=== PATIENT | female | born 1990 | race Hispanic/Latino ===

== ENCOUNTER 2018-04-07 03:20 | Inpatient (IN) | payer SELFPAY ==
[2018-04-07] MEDS ORDERED: Ondansetron PF 4 MG/2 ML Vial IVP PRN ×3 (04:07→14:52)
[2018-04-07] MEDS ORDERED: Butorphanol Tartrate 1 MG/ML VIAL SLOW IVP PRN (04:07)
[2018-04-07] MEDS ORDERED: Misoprostol 200 MCG TAB PR PRN (04:07)
[2018-04-07] MEDS ORDERED: Lidocaine 1% (PF) 30 ML VIAL SC PRN (04:07)
[2018-04-07] MEDS ORDERED: Promethazine HCl 25 MG/ML VIAL IM PRN ×2 (04:07→05:04)
[2018-04-07] MEDS ORDERED: Carboprost 250 MCG/ML AMP IM PRN (04:07)
[2018-04-07] MEDS ORDERED: NS / Oxytocin 40 units/1000ml 1,000 ML IV PRN (04:07)
[2018-04-07] MEDS ORDERED: Methylergonovine 0.2 MG/ML VIAL IM PRN (04:07)
[2018-04-07] MEDS ORDERED: Penicillin G Potassium 5 MILL.UNITS VIAL ONE (04:14)
[2018-04-07] MEDS ORDERED: Penicillin G Potassium 5 MILL.UNITS in Sodium Chloride 0.9% 100 ML IVPB SCH (04:15)
--- NOTE | 2018-04-07 04:18 | PDOC.FPROB ---
FMR OB H&P: HPI - History of Present Illness Chief Complaint: contractions History of Present Illness: 27 yo @ 38.2 by LMP/19.6 wk US presents with painful contractions that began at 2300 on 04/06/18. No LOF. Reports some vaginal discharge/blood when contractions began. No headache, edema. Feels movement. Patient with limited care, no PNC records available. 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 - Surgical History Sx History: None - Social History Social History: No tobacco, alcohol, drug use - Family History Family History: None FMR OB H&P: Medications - Current Home Medications: Medication Instructions Recorded Confirmed Type Vit,Calc76/Iron/Folic 1 tablet PO DAILY-AC 04/07/18 04/07/18 History [Pnv 29-1 Tablet] Allergies/Adverse Reactions: Allergies Allergy/AdvReac Type Severity Reaction Status Date / Time No Known Allergies Allergy Verified 04/07/18 03:56 FMR OB H&P: ROS - Review of Systems Cardiovascular: denies: chest pain, edema Respiratory: denies: shortness of breath Gastrointestinal: denies: nausea, vomiting Genitourinary (Female): reports: vaginal discharge, vaginal bleeding, contractions Musculoskeletal: denies: pain FMR OB H&P: Vital Signs - Maternal Vital signs: 126/79, 69 - Heart Tones Baseline: 125 Variability: moderate Acceleration: absent Deceleration: absent Category: category 1 [place] contractions every: 2-5 FMR OB H&P: Physical Exam - Physical Exam HEENT: normocephalic and atraumatic Heart: no edema General: no respiratory distress Abdomen: gravid, non-tender Skin: good tugor - Pelvic Exam SVE: 6/100/-1 bulging bag FMR OB H&P: A/P - Problem List (1) Current Visit: Yes Status: Acute (2) Late care Current Visit: Yes Status: Acute Code(s): O09.30 - SUPRVSN OF PREG W INSUFFICIENT ANTENAT CARE, UNSP TRIMESTER (3) Anemia Current Visit: Yes Status: Acute Code(s): D64.9 - ANEMIA, UNSPECIFIED (4) GBS (group B Streptococcus carrier), +RV culture, currently Current Visit: Yes Status: Acute Code(s): O99.820 - STREPTOCOCCUS B CARRIER STATE COMPLICATING Discussion: Date/Time: 04/07/18 0416 sIUP in active labor - FHT 125/mod/no accel/no decel - 6/100/-1 with bulging bag @ 0345 - Ctx q2-4 min - desires epidural - LR @ 125, NPO GBS+ - will start antibiotics Incomplete care - no PNC records on file Anemia - on PNC card, unknown Hgb Elevated 1hr GTT of 156, 3 hr GTT negative PCP: Naga John This H&P was discussed with Dr. Hutchinson and Dr. Mccall who agree with the above documentation and plan. Addendum - Attending - Attending Attestation Date/Time: 04/07/18 0933 I personally evaluated the patient and discussed the management with Dr. Brown I agree with the History, Examination, Assessment and Plan documented above with any addition or exceptions noted below. 27 yo @ 38.2 by LMP/19.6 wk US in active labor at term. No records available at this time but uncomplicated per patient report. GBS positive. Start prophylaxis now. Defer further cervical checks or AROM until 4hrs after first dose of pcn. Cat I FHT Anticipate
[2018-04-07] MEDS ORDERED: Fentanyl 4 mcg/Bup 0.1% Cadd 100 ML ONE (04:25)
[2018-04-07 04:31] VITALS: BMI 34.9
[2018-04-07 04:33] LABS: Hemoglobin 11.3 g/dL (12.0-16.0); Mean Corpuscular HGB CONC 32.2 g/dL (32.0-36.0); Mean Corpuscular Hemoglobin 27.4 pg (27.0-31.0); Mean Corpuscular Volume 84.9 fL (78.0-98.0); Mean Platelet Volume 10.2 fL (7.4-10.4); Platelet Count 179 thou/uL (130-400); RBC Distribution Width 18.1 % (11.5-14.5); Red Blood Cell (RBC) Count 4.15 mill/uL (4.20-5.40); White Blood Cell (WBC) Count 8.5 thou/uL (4.8-10.8)
[2018-04-07] MEDS: Lactated Ringer's 1,000 ML IV SCH ×2 (05:02→06:35)
[2018-04-07] MEDS ORDERED: diphenhydrAMINE 50 MG/ML VIAL IVP PRN (05:04)
[2018-04-07] MEDS ORDERED: Lactated Ringer's 500 ML IV PRN (05:04)
[2018-04-07] MEDS ORDERED: Eucerin (Mineral Oil/Petrolatum,White) 30 gm Jar TOP PRN (05:04)
[2018-04-07] MEDS ORDERED: ePHEDrine/0.9% NaCl/PF SYRINGE 50 mg/10 ml SLOW IVP PRN (05:04)
[2018-04-07] MEDS ORDERED: Acetaminophen 325 MG TAB PO PRN (05:04)
[2018-04-07] MEDS ORDERED: Naloxone HCl 0.4 mg/ml Vial IVP PRN ×2 (05:04)
[2018-04-07 05:09] LABS: HBSAg Index 0.28 S/CO (0-0.99); Hep B Surf Ag Non-Reactive S/CO (NonReactive); Syphilis Antibody Nonreactive (Nonreactive); Syphilis Antibody Index 0.03 S/CO (<1.00 Non-Reactive)
[2018-04-07] MEDS ORDERED: Fentanyl 4 mcg/Bupivacaine 0.1% Cassette 100 ML EPIDURAL SCH (05:15)
[2018-04-07] MEDS ORDERED: Communication Order-Pharmacy FS SCH (05:15)
--- NOTE | 2018-04-07 06:37 | PDOC.LDPN ---
Labor & Delivery Progress Note - Subjective Subjective: comfortable - Objective Vital signs reviewed and normal: yes General: NAD, resting Uterine fundus: non tender FHT: category 1, variability present [place] contractions every: 2-4 minutes - Assessment (1) Anemia Code(s): D64.9 - ANEMIA, UNSPECIFIED Current Visit: Yes Status: Acute (2) GBS (group B Streptococcus carrier), +RV culture, currently Code(s): O99.820 - STREPTOCOCCUS B CARRIER STATE COMPLICATING Current Visit: Yes Status: Acute (3) Late care Code(s): O09.30 - SUPRVSN OF PREG W INSUFFICIENT ANTENAT CARE, UNSP TRIMESTER Current Visit: Yes Status: Acute (4) Current Visit: Yes Status: Acute -: # sIUP in active labor - FHT 13-, minimal variablity at the moment, many periods with good variability , turned mother, no decels, multiple accels - cat 1 strip - 6/100/-1 with bulging bag @ 0345, will check again at 0800, 4 hrs after abx - Ctx q2-4 min - epidural in place # GBS+ - Penicillin started at 0400 # Late to care # Anemia of
--- NOTE | 2018-04-07 08:05 | PDOC.LDPN ---
Labor & Delivery Progress Note - Subjective Subjective: comfortable - Objective Vital signs reviewed and normal: yes General: NAD, resting Uterine fundus: non tender Dilation: 8 Effacement: 100% Station: -1 FHT: category 1 [place] contractions every: 2-4 AROM: meconium stained fluid - Assessment (1) Anemia Code(s): D64.9 - ANEMIA, UNSPECIFIED Current Visit: Yes Status: Acute (2) GBS (group B Streptococcus carrier), +RV culture, currently Code(s): O99.820 - STREPTOCOCCUS B CARRIER STATE COMPLICATING Current Visit: Yes Status: Acute (3) Late care Code(s): O09.30 - SUPRVSN OF PREG W INSUFFICIENT ANTENAT CARE, UNSP TRIMESTER Current Visit: Yes Status: Acute (4) Current Visit: Yes Status: Acute -: 27 yo @ 38.2 by LMP/19.6 wk US # sIUP in active labor - FHT 130, moderate variability, accels present, no decels - cat 1 strip - 8/100/-1 - Ctx q2-4 min - epidural in place - AROM at 0800, light mec # GBS+ - Penicillin started at 0400 # Late to care # Anemia of
[2018-04-07] MEDS: Penicillin G 2.5 MILL.units 2.5 MILL.UNITS in Premix Bag 1 BAG IVPB SCH ×2 (08:06→18:50)
[2018-04-07] MEDS ORDERED: NS / Oxytocin 40 units/1000ml 1,000 ML ONE (09:19)
[2018-04-07] MEDS ORDERED: Lidocaine 1% (PF) 30 ML VIAL ONE (09:19)
--- NOTE | 2018-04-07 09:39 | PDOC.LDPN ---
Labor & Delivery Progress Note - Subjective Subjective: comfortable - Objective General: NAD, resting, breathing through contractions Dilation: 9 Effacement: 100% Station: 0 FHT: category 1, variability present [place] contractions every: 2-4 AROM: meconium stained fluid - Assessment (1) Anemia Code(s): D64.9 - ANEMIA, UNSPECIFIED Current Visit: Yes Status: Acute (2) GBS (group B Streptococcus carrier), +RV culture, currently Code(s): O99.820 - STREPTOCOCCUS B CARRIER STATE COMPLICATING Current Visit: Yes Status: Acute (3) Late care Code(s): O09.30 - SUPRVSN OF PREG W INSUFFICIENT ANTENAT CARE, UNSP TRIMESTER Current Visit: Yes Status: Acute (4) Current Visit: Yes Status: Acute -: 27 yo @ 38.2 by LMP/19.6 wk US # sIUP in active labor - FHT 130, moderate variability, accels present, no decels - cat 1 strip - 9/100/-1 - Ctx q2-4 min - epidural in place - AROM at 0800, light mec # GBS+ - Penicillin started at 0400 # Late to care # Anemia of
[2018-04-07] MEDS ORDERED: NS w/ Oxytocin 10 units 500 ML ONE (10:05)
[2018-04-07] MEDS ORDERED: Bupivacaine HCl 0.5%/Epinephrine 1:200,000/PF 30 ml Vial ONE (11:11)
[2018-04-07] MEDS ORDERED: Bisacodyl 10 MG SUPP PR PRN (14:52)
[2018-04-07] MEDS ORDERED: NS / Oxytocin 40 units/1000ml 1,000 ML IV SCH (14:52)
[2018-04-07] MEDS ORDERED: Milk Of Magnesia 30 ML UDCUP PO PRN (14:52)
[2018-04-07] MEDS ORDERED: Lanolin Ointment 7 GM TUBE TOP PRN (14:52)
[2018-04-07] MEDS ORDERED: Benzocaine/Menthol 20-0.5% 60 ML CAN TOP PRN (14:52)
[2018-04-07] MEDS ORDERED: Zolpidem Tartrate 5 MG TAB PO PRN (14:52)
[2018-04-07] MEDS: Ibuprofen 800 MG TAB PO SCH ×2 (16:42→23:29)
[2018-04-07] MEDS: Ferrous Sulfate 325 MG TAB PO SCH (17:05)
[2018-04-07] MEDS: Docusate Calcium (SURFAK) 240 MG CAP PO SCH (21:43)
[2018-04-08] MEDS: Ibuprofen 800 MG TAB PO SCH ×3 (05:51→21:22)
[2018-04-08] MEDS ORDERED: Sodium Chloride 0.9% 10 ML ONE (05:54)
[2018-04-08 07:05] LABS: Hemoglobin 10.1 g/dL (12.0-16.0); Mean Corpuscular Hemoglobin 27.7 pg (27.0-31.0); Mean Corpuscular Volume 86.5 fL (78.0-98.0); Mean Platelet Volume 9.6 fL (7.4-10.4); Platelet Count 161 thou/uL (130-400); RBC Distribution Width 18.6 % (11.5-14.5); Red Blood Cell (RBC) Count 3.64 mill/uL (4.20-5.40); White Blood Cell (WBC) Count 11.5 thou/uL (4.8-10.8)
--- NOTE | 2018-04-08 08:35 | PDOC.PP ---
Post Progress Note Post Day #: 1 Subjective: This morning mother states she is feeling well overall. Minimal bleeding overnight. Had good PO intake. Ambulating. No BM as of yet. PO intake tolerated: yes Flatus: no Ambulation: yes Vital Signs (12 hours) Temp Pulse Resp BP 04/08/18 05:45 97.5 F L 68 20 102/60 04/08/18 00:00 98.2 F 74 18 113/64 Weight Weight 81.193 kg - Physical Examination General: NAD Cardiovascular: no m/r/g, RRR Respiratory: clear to auscultation bilaterally, non-labored breathing Abdominal: + bowel sounds, lochia, no distention, appropriately TTP Fundus firm & at: umbilicus Extremities: negative homans (B) Neurological: no gross focal deficits Psychiatric: A&Ox3, normal affect Result Diagrams: 04/08/18 06:28 Additional Labs: Post Labs Blood Type O POSITIVE 04/07/18 04:22 Hep Bs Antigen Non-Reactive S/CO (NonReactive) 04/07/18 04:22 (1) Anemia Code(s): D64.9 - ANEMIA, UNSPECIFIED Status: Acute (2) GBS (group B Streptococcus carrier), +RV culture, currently Code(s): O99.820 - STREPTOCOCCUS B CARRIER STATE COMPLICATING Status : Acute (3) Late care Code(s): O09.30 - SUPRVSN OF PREG W INSUFFICIENT ANTENAT CARE, UNSP TRIMESTER Status: Acute (4) Status: Acute - Assessment/Plan 27 yo @ 38.2 by LMP/19.6 wk US # PPD 1 - hgb 11.3-> 10.2 - ambulating - working on - pain well controlled # GBS+ - adequate ppx # Late to care Dispo: anticipate d/c tomorrow AM Addendum - Attending - Attending Attestation Date/Time: 04/08/18 1025 I personally evaluated the patient and discussed the management with Dr. John I agree with the History, Examination, Assessment and Plan documented above with any addition or exceptions noted below. day #1 s/p uncomplicated Meeting milestones Appropriate drop in H+H Continue routine PP care. Anticipate d/c to home on PPD # 2.
[2018-04-08] MEDS: Docusate Calcium (SURFAK) 240 MG CAP PO SCH ×2 (08:46→21:22)
[2018-04-08] MEDS ORDERED: Adacel (T-DAP) 0.5 ML SYRINGE IM ONE (09:00)
[2018-04-08] MEDS: Ferrous Sulfate 325 MG TAB PO SCH ×2 (13:51→18:28)
[2018-04-09] MEDS: Ibuprofen 800 MG TAB PO SCH (06:08)
--- NOTE | 2018-04-09 06:11 | PDOC.PP ---
Post Progress Note Post Day #: 2 Subjective: Feeling well. Walking, eating, voiding, stooling w/o difficulty. is improved but did supplement w/ some formula last night. Will see today. PO intake tolerated: yes Flatus: yes Ambulation: yes Vital Signs (12 hours) Temp Pulse Resp BP Pulse Ox 04/08/18 20:00 97.5 F L 70 18 118/68 98 Weight Weight 81.193 kg - Physical Examination General: NAD Cardiovascular: no m/r/g, RRR Respiratory: clear to auscultation bilaterally, non-labored breathing Abdominal: + bowel sounds, lochia, no distention, appropriately TTP Extremities: negative homans (B) Neurological: no gross focal deficits Psychiatric: A&Ox3, normal affect Result Diagrams: 04/08/18 06:28 Additional Labs: Post Labs Blood Type O POSITIVE 04/07/18 04:22 Hep Bs Antigen Non-Reactive S/CO (NonReactive) 04/07/18 04:22 (1) Anemia Code(s): D64.9 - ANEMIA, UNSPECIFIED Status: Acute (2) GBS (group B Streptococcus carrier), +RV culture, currently Code(s): O99.820 - STREPTOCOCCUS B CARRIER STATE COMPLICATING Status : Acute (3) Late care Code(s): O09.30 - SUPRVSN OF PREG W INSUFFICIENT ANTENAT CARE, UNSP TRIMESTER Status: Acute (4) Status: Acute - Assessment/Plan 27 yo @ 38.2 by LMP/19.6 wk US # PPD 2 - hgb 11.3-> 10.2 - ambulating - working on , to see before d/c - pain well controlled # GBS+ - adequate ppx # Late to care Dispo: d/c today, f/u at [facility] in 2 weeks Addendum - Attending - Attending Attestation Date/Time: 04/09/18 6406 I personally evaluated the patient and discussed the management with Dr John I agree with the History, Examination, Assessment and Plan documented above with any addition or exceptions noted below. Stable PPD #2. Meeting milestones. D/c to home today
[2018-04-09] MEDS: Ferrous Sulfate 325 MG TAB PO SCH (08:41)
[2018-04-09] MEDS: Docusate Calcium (SURFAK) 240 MG CAP PO SCH (09:16)
--- NOTE | 2018-04-09 09:40 | DN ---
DATE OF PROCEDURE: 04/07/2018 DELIVERING PHYSICIAN: Dr. Colin John. ATTENDING PHYSICIAN: Dr. Leena Mccall. PROCEDURE PERFORMED: Spontaneous vaginal delivery. ANESTHESIA: Epidural. QBL: 288. PREOPERATIVE DIAGNOSES: 1. Term intrauterine in labor. 2. Anemia of . 3. Late care. POSTOPERATIVE DIAGNOSES: 1. Intrauterine , delivered. 2. Anemia of . INDICATIONS: A 27-year-old, G2, P2 female presented in active labor. DELIVERY NOTE: This is a 27-year-old, G2, P2-0-0-2 female at 38 and 2 weeks, who delivered a viable male at 1203 hours on 04/07/2018. Following an uneventful antepartum course, a vigorous male infant was delivered over an intact peritoneum in the left occiput anterior position. Mother delivered in ROP for the majority of her time in second stage, but baby flipped near the end. Anterior shoulder and then the remainder of the body were delivered. No nuchal cord. Head was held down, and nares were bulb suctioned. Cord clamped and cut and cord blood collected. Placenta delivered intact with a 3-vessel cord noted. Fundal massage was performed, and the fundus was firm. The cervix and vagina were inspected and found to have a first-degree perineal laceration as well as bilateral superficial periurethral lacerations. The first-degree laceration was repaired with 3 [id number] knots of 3-0 Vicryl. The 2 periurethral lacerations were repaired with a figure-of- eight knot on each side with 3-0 Vicryl. Upon finishing, the lacerations were found to be hemostatic. The went to the nursery in good condition for routine care. Apgars were 8 and 9 at one and five minutes respectively. The patient tolerated delivery well, went to after routine recovery care. I was present for and assisted in the entire uncomplicated vaginal delivery performed by Dr John. I agree with the above documentation. Noemi JUNIOR Job ID: [id number] MTDD
[2018-04-09 13:32] VITALS: BP 119/68; TEMP 98.2
== END 2018-04-09 14:50 | disposition home or self-care (01) | DRG 807 ==
LOC: L&D/OP 03:20 → L&D 05:24 → 3SW 15:00
PROVIDERS: ADMIT Family Medicine; ATTEND Family Medicine
PROC: 10E0XZZ Delivery of Products of Conception, External Approach (ICD-10-PCS; principal; 2018-04-07)
PROC: 0HQ9XZZ Repair Perineum Skin, External Approach (ICD-10-PCS; 2018-04-07)
PROC: 0UQMXZZ Repair Vulva, External Approach (ICD-10-PCS; 2018-04-07)
PROC: 10907ZC Drainage of Amniotic Fluid, Therapeutic from Products of Conception, Via Natural or Artificial Opening (ICD-10-PCS; 2018-04-07)
PROC: 4A0HXCZ Measurement of Products of Conception, Cardiac Rate, External Approach (ICD-10-PCS; 2018-04-07)
DX: O99.824 Streptococcus B carrier state complicating childbirth (principal); Z37.0 Single live birth; O99.02 Anemia complicating childbirth; O70.0 First degree perineal laceration during delivery; O71.82 Other specified trauma to perineum and vulva; O77.0 Labor and delivery complicated by meconium in amniotic fluid; Z3A.38 38 weeks gestation of pregnancy; D64.9 Anemia, unspecified
CPT/HCPCS: 36415; 51702; 85027; 86780; 86850; 86900; 86901; 87340; 99285; J0670; J2001; J2540

== ENCOUNTER 2020-03-25 21:05 | Inpatient (IN) | payer MEDICAID, OTHER, SELFPAY ==
[~2020-03-25 21:05] MED LIST: Bupivacaine HCl 0.25%/Epi 0.0005/PF 10 ML VIAL FS ONE; Lidocaine 2% PF 5 ML VIAL ONE
[2020-03-25 21:48] VITALS: BMI 28.3
--- NOTE | 2020-03-25 22:09 | PDOC.FPROB ---
FMR OB H&P: HPI - History of Present Illness Indentification: 29 y/o @ 39.6 wga based on 19.1 wk sono Primary Care Physician: ASHLEY Morrow FMR OB H&P: Current - Care : 3 Para: 2 Gestational age: 39.6 Due date: 03/26/20 Dating Criteria: 19.1 wk sono FMR OB H&P: Medications - Current Home Medications: Medication Instructions Recorded Confirmed Type Vit,Calc76/Iron/Folic 1 tablet PO DAILY-AC 04/07/18 03/25/20 History [Pnv 29-1 Tablet] Allergies/Adverse Reactions: Allergies Allergy/AdvReac Type Severity Reaction Status Date / Time No Known Allergies Allergy Verified 04/07/18 03:56 FMR OB H&P: A/P Discussion: Date/Time: 03/25/202206 This H&P was discussed with [] and [] who agree with the above documentation and plan.
[2020-03-26] MEDS ORDERED: Ondansetron PF 4 MG/2 ML Vial IVP PRN ×2 (00:24→06:35)
[2020-03-26] MEDS ORDERED: hydrALAZINE 20 MG/ML VIAL SLOW IVP PRN ×2 (00:24→17:32)
[2020-03-26] MEDS ORDERED: Promethazine HCl 25 MG/ML VIAL IM PRN ×2 (00:24→06:35)
[2020-03-26] MEDS ORDERED: NS / Oxytocin 40 units/1000ml 1,000 ML IV PRN ×2 (00:24→01:05)
[2020-03-26] MEDS ORDERED: Lidocaine 1% (PF) 30 ML VIAL SC PRN ×2 (00:24→01:05)
--- NOTE | 2020-03-26 00:24 | PDOC.FPROB ---
FMR OB H&P: HPI - History of Present Illness Chief Complaint: eIOL Indentification: 29 y/o @ 39 wga based on LMP c/w 18.1 wk sono History of Present Illness: Pt presents today for eIOL. Today based on LMP of 06/27/2019 pt is 39.0 wga, which is consistent with u/s obtained in [place] (photos/documentation in chart) at 18.1 wga. Has been keeping with PNC visits. Pt endorses FM, no LOF, VB, VD, or contractions at this time. No complaints at this time. ROS negative. 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 History: -none - Surgical History Sx History: -none - Social History Social History: -no TAD -FOB involved - Family History Family History: -mother: DM FMR OB H&P: Medications - Current Home Medications: Medication Instructions Recorded Confirmed Type Vit,Calc76/Iron/Folic 1 tablet PO DAILY-AC 04/07/18 03/25/20 History [Pnv 29-1 Tablet] Allergies/Adverse Reactions: Allergies Allergy/AdvReac Type Severity Reaction Status Date / Time No Known Allergies Allergy Verified 04/07/18 03:56 FMR OB H&P: ROS - Review of Systems General: denies: fever/chills Eyes: denies: vision changes, double vision, scotomas ENT: denies: nasal congestion, rhinorrhea Cardiovascular: denies: chest pain, palpitation Respiratory: denies: cough, congestion, shortness of breath Gastrointestinal: denies: abdominal pain Genitourinary (Female): denies: incontinence, dysuria, polyuria, vaginal discharge, vaginal bleeding, vaginal pressure Musculoskeletal: denies: pain, stiffness, tenderness, swelling Neurologic: denies: numbness, weakness, headache Integumentary: denies: rash FMR OB H&P: Vital Signs - Maternal Vital signs: BP 123/66, HR 88 - Heart Tones Baseline: 140 Variability: moderate Acceleration: absent Deceleration: absent Category: category 1 [place] contractions every: 1 contraction seen in 20 min strip FMR OB H&P: Physical Exam - Physical Exam General: NAD, awake, alert and oriented HEENT: normocephalic and atraumatic, PERRLA, grossly normal vision, grossly normal hearing Neck: supple Heart: RRR, normal S1/S2, no murmurs/rubs/gallops General: CTAB, no respiratory distress, good air movement, no rales/rhonchi, no wheezing, no retractions Abdomen: soft, gravid Musculoskeletal: normal gait and station, pulses present, FROM in all four extremities Skin: no rash, good tugor, capillary refill <2 seconds Lymphatic: no unusual bruising or bleeding, no petechia Psychiatric: intact recent and remote memory, good judgement and insight, normal mood and affect - Pelvic Exam SVE: Hobson score: 6 Membranes: intact FMR OB H&P: A/P Disposition: Pt is a 29 y/o 2 39.0 wga by LMP c/w 18.1 wk sono here for [facility] ##sIUP in third trimester -patient at 39.0 wga today -LMP 06/27/19 c/w 19.1 wk sono performed in [place] on 11/01/2019, report printed and in chart for record purposes -3T labs wnl -GBS negative -FHT: FHR in 140s, cat 1, accels, moderate variability, contractions not consistent, 1 every 20min or so -SVE: /2 @ 00:19 ##suspected LGA -aware -noted on u/s EFW >99%m 4581g, with CASSIUS 20.1 -staff prepared for complicated delivery ##Anemia of -Hbg 10.2 on last labs from PNC records -on PNV during -aware Plan: Place cytotec to begin induction. Will recheck in 4 hours. Discussion: Date/Time: 03/26/2022 This H&P was discussed with Dr. Hugo and Dr. Naqvi who agree with the above documentation and plan. Addendum - Attending - Attending Attestation Date/Time: 03/26/2031 I personally evaluated the patient and discussed the management with resident team I agree with the History, Examination, Assessment and Plan documented above with any addition or exceptions noted below. 29 yo female at 39.0 by LMP/18.1 wk sono here for eIOL. Patient without complaints. GBS negative. NST reactive. Now with ctx q 10 mins and cat 1. Favorable cervix. Will augment with pitocin. Aware of possible LGA fetus. ABrSalvador
[2020-03-26] MEDS ORDERED: Misoprostol 100 MCG TAB VAG SCH (01:15)
[2020-03-26] MEDS: Lactated Ringer's 1,000 ML IV SCH ×4 (01:30→09:02)
[2020-03-26 01:37] LABS: Hemoglobin 13.2 g/dL (12.0-16.0); Mean Corpuscular HGB CONC 33.4 g/dL (32.0-36.0); Mean Corpuscular Hemoglobin 30.7 pg (27.0-31.0); Mean Corpuscular Volume 91.8 fL (78.0-98.0); Mean Platelet Volume 9.6 fL (7.4-10.4); Platelet Count 153 thou/uL (130-400); RBC Distribution Width 14.9 % (11.5-14.5); Red Blood Cell (RBC) Count 4.32 mill/uL (4.20-5.40)
[2020-03-26 02:18] LABS: Hep B Surf Ag Non-Reactive S/CO (NonReactive)
--- NOTE | 2020-03-26 05:10 | PDOC.BPN ---
<Hortencia Kong - Last Filed: 03/26/20 05:27> - Brief Progress Note Encounter Date: 03/26/20 Encounter Time: 04:50 S: Pt seen at bedside. States that she can feel contractions at this time. O: BP 101/57, HR 67 FHT: FHR 130s, moderate variability, accels noted, ctx every ~ 10 min SVE: /-2 @ 04:50 AM A/P: -will start pitocin at this time -check in 2-3 hours Plan discussed with Dr. Hugo and Dr. Naqvi <Berkley Hugo - Last Filed: 03/26/20 20:11> - Brief Progress Note Discussed starting pitocin earlier but never got started. Will start now. Gino
[2020-03-26 05:25] LABS: Syphilis Antibody Nonreactive (Nonreactive); Syphilis Antibody Index 0.02 S/CO (<1.00 Non-Reactive)
[2020-03-26] MEDS ORDERED: Fentanyl 4 mcg/Bup 0.1% Cadd 100 ML ONE ×2 (05:38→14:14)
[2020-03-26] MEDS ORDERED: Naloxone HCl 0.4 mg/ml Vial IVP PRN ×2 (06:35)
[2020-03-26] MEDS ORDERED: ePHEDrine 50 MG/ML VIAL SLOW IVP PRN (06:35)
[2020-03-26] MEDS ORDERED: diphenhydrAMINE 50 MG/ML VIAL IVP PRN (06:35)
[2020-03-26] MEDS ORDERED: Lactated Ringer's 500 ML IV PRN (06:35)
[2020-03-26] MEDS ORDERED: Fentanyl 4 mcg/Bupivacaine 0.1% Cassette 100 ML EPIDURAL SCH (06:45)
[2020-03-26] MEDS ORDERED: Communication Order-Pharmacy FS SCH (06:45)
[2020-03-26] MEDS: Acetaminophen 325 MG TAB PO PRN ×2 (07:14→15:44)
--- NOTE | 2020-03-26 07:19 | PDOC.BPN ---
- Brief Progress Note Encounter Date: 03/26/20 Encounter Time: 07:13 S: Pt seen at bedside, c/o headache worse with movement. Had epidural placed around 0600. Currently not feeling contractions. No additional complaints. O: Resting comfortably, VS wnl, no edema A/P: SVE performed by nursing around 0645, /-2. Pitocin not started previously due to epidural being placed. FHT cat 1 135/mod/+accel, will start pitocin as previously planned. Nursing has already contacted anesthesia regarding headache s/p epidural. We will continue to monitor closely for any progression of symptoms. Plan to be discussed with Dr. Donahue. DO Xuan, PGY-1
[2020-03-26] MEDS ORDERED: NS w/ Oxytocin 30 units 500 ML ONE ×2 (07:49→16:43)
[2020-03-26] MEDS ORDERED: Misoprostol 200 MCG TAB PR PRN (12:21)
--- NOTE | 2020-03-26 12:28 | PDOC.LDPN ---
Labor & Delivery Progress Note - Subjective Subjective: comfortable, no concerns - Objective Vital signs reviewed and normal: yes General: NAD, resting SVE: 9/100/0 FHT: category 1 [place] contractions every: 2-4 min AROM: clear fluid -: sIUP, IOL macrosomia borderline polyhydramnios 39.0 wks today, will continue with IOL. SVE @ 1220 9/100/0 AROM clear fluid Advised to monitor for vaginal pressure Next SVE in 1 hr unless clinically indicated sooner Cat 1 strip, continue FHT monitoring Discussed with Dr. Donahue. Xuan, DO, PGY-1 I personally performed the AROM. tucker bulb obstructing pelvic outlet. Repositioned during SVE and head descended approx 1 cm. Reassess in 1 hour.
[2020-03-26] MEDS ORDERED: Lidocaine 1% (PF) 30 ML VIAL ONE (12:32)
[2020-03-26] MEDS ORDERED: Misoprostol 200 MCG TAB ONE (15:00)
--- NOTE | 2020-03-26 15:10 | PDOC.OPDEL ---
OB Operative/Delivery Note - Additional Findings/Plan Compilations/Other Findings: Vaginal Delivery note Delivering Physician: Xochilt / Cristhian Attending: Rowan Procedure: Spontaneous Vaginal Delivery Anesthesia: Epidural QBL: pending Pre-op Diagnosis: 1. Term intrauterine , induction of labor 2. Late to care 3. Suspected Macrosomia. Post-op Diagnosis: 1. Term intrauterine , delivered 2. Late to care. 3. LGA . Indications: A 29 y/o female presented for eIOL @ term with suspected macrosomia. Delivery Note: This is 29 y/o female @ 39.0wks who delivered a viable M infant at 14:57. Following an uneventful antepartum course, a vigorous M was delivered over an intact perineum in the occipitoanterior position. Anterior Shoulder and then remainder of the body delivered. No nuchal cord. The head was held down and mouth and nares were bulb suctioned. Cord clamped and cut and cord blood collected. Placenta delivered intact with a 3 vessel cord noted. Fundal massage was performed and the fundus was firm. The cervix and vagina were inspected and bilateral periuretheral abrasions were noted that were hemostatic and did not require repair. 1000mcg of Cytotec were placed rectally for concern of bleeding. After placement, uterus was noted to be firm and bleeding stopped. Infant went to nursery in good condition for routine care. Apgars were 7/8 at 1 & 5 minutes, respectively. Patient tolerated delivery well and went to after routine recovery/care. ATTENDING ADDENDUM: I was present for and supervised the entire delivery. I agree with the above documentation.
[2020-03-26] MEDS ORDERED: Bisacodyl 10 MG SUPP PR PRN (17:32)
[2020-03-26] MEDS ORDERED: NS / Oxytocin 40 units/1000ml 1,000 ML IV SCH (17:32)
[2020-03-26] MEDS ORDERED: Milk Of Magnesia 30 ML UDCUP PO PRN (17:32)
[2020-03-26] MEDS ORDERED: Lanolin Ointment 7 GM TUBE TOP PRN (17:32)
[2020-03-26] MEDS: Ferrous Sulfate 325 MG TAB PO SCH (18:37)
[2020-03-26] MEDS: Docusate Calcium (SURFAK) 240 MG CAP PO SCH (19:52)
[2020-03-26] MEDS: Ibuprofen 800 MG TAB PO SCH (19:52)
[2020-03-27] MEDS: Acetaminophen 325 MG TAB PO PRN (03:03)
[2020-03-27] MEDS: Ibuprofen 800 MG TAB PO SCH ×3 (05:50→22:00)
--- NOTE | 2020-03-27 06:45 | PDOC.PP ---
Post Progress Note Post Day #: 1 Subjective: Doing well. c/o rectal pain. Minimal lochia. PO intake tolerated: yes Flatus: yes Ambulation: yes Vital Signs (12 hours) Temp Pulse Resp BP Pulse Ox 03/27/20 04:05 98.1 F 59 L 18 108/72 98 03/27/20 00:05 98.9 F 63 18 100/53 L 97 03/26/20 19:55 98 03/26/20 19:02 99.8 F H 75 12 99/61 98 Weight Weight 72.575 kg - Physical Examination General: NAD Cardiovascular: no m/r/g, RRR Respiratory: clear to auscultation bilaterally, non-labored breathing Abdominal: + bowel sounds, lochia, no distention, appropriately TTP Perineum: Inspected. Free of laceration or hematoma. Neurological: no gross focal deficits Psychiatric: A&Ox3, normal affect Result Diagrams: 03/26/20 01:25 Additional Labs: Post Labs Hep Bs Antigen Non-Reactive S/CO (NonReactive) 03/26/20 01:25 Blood Type O POSITIVE 03/26/20 01:25 (1) Normal vaginal delivery Code(s): O80 - ENCOUNTER FOR FULL-TERM UNCOMPLICATED DELIVERY Status: Acute (2) Late care Code(s): O09.30 - SUPRVSN OF PREG W INSUFFICIENT ANTENAT CARE, UNSP TRIMESTER Status: Acute - Assessment/Plan 29yo delivered via 03/26/2020 @ 14:57 @ 39 wga by LMP c/w 19.1 wk US [ERICKA 04/02/20] PPD #1 - S/p - Routine PP care - Scheduled ibuprofen. - Ice pack to perineum to assist with swelling and discomfort. - D/c home today or tomorrow pending baby's nursery course. LGA baby Late transition of care Addendum - Attending - Attending Attestation Date/Time: 03/27/20 1051 I personally evaluated the patient and discussed the management with Dr. Morrow I agree with the History, Examination, Assessment and Plan documented above with any addition or exceptions noted below. possible d/c PM if infant able to d/c
[2020-03-27 10:42] LABS: SARS-CoV-2 PCR by NAA DETECTED (NotDetected)
[2020-03-27] MEDS: Docusate Calcium (SURFAK) 240 MG CAP PO SCH ×2 (17:01→21:00)
[2020-03-27] MEDS: Prenatal Vitamin 1 TAB PO SCH (17:01)
[2020-03-27] MEDS: Ferrous Sulfate 325 MG TAB PO SCH (17:01)
[2020-03-27 21:43] VITALS: BP 103/55; TEMP 98.3
[2020-03-28] MEDS: Ibuprofen 800 MG TAB PO SCH ×2 (06:32→14:10)
--- NOTE | 2020-03-28 06:50 | PDOC.PP ---
Post Progress Note Post Day #: 2 Subjective: No acute events overnight. Patient is doing well with no complaints. Minimal lochia. Ambulating. Tolerating PO. Passing flatus. PO intake tolerated: yes Flatus: yes Ambulation: yes Vital Signs (12 hours) Temp Pulse Resp BP Pulse Ox 03/27/20 20:00 98.3 F 63 18 103/55 L 99 Weight Weight 72.575 kg - Physical Examination General: NAD Cardiovascular: no m/r/g, RRR Respiratory: clear to auscultation bilaterally, non-labored breathing Abdominal: + bowel sounds, lochia (minimal), no distention, appropriately TTP Neurological: no gross focal deficits Psychiatric: A&Ox3, normal affect Result Diagrams: 03/26/20 01:25 Additional Labs: Post Labs Hep Bs Antigen Non-Reactive S/CO (NonReactive) 03/26/20 01:25 Blood Type O POSITIVE 03/26/20 01:25 - Assessment/Plan 29yo delivered via 03/26/2020 @ 14:57 @ 39 wga by LMP c/w 19.1 wk US [ERICKA 04/02/20] PPD #2 - S/p - Routine PP care - Scheduled ibuprofen. - VSS - Ice pack to perineum to assist with swelling and discomfort. - D/c home today LGA baby Late transition of care COVID + - asymptomatic, satting well on RA with no resp distress - Will reswab today due to baby becoming tachypneic Dispo: discharge home, f/u in 2 weeks for PP visit Discussed with Dr. Murphy Addendum - Attending - Attending Attestation Date/Time: 03/28/20 1000 I personally evaluated the patient and discussed the management with Dr. Tyson I agree with the History, Examination, Assessment and Plan documented above with any addition or exceptions noted below - Patient without complaints/ Ambulating/voiding. Afebrile VSS. A/P: 1) PPD #2 s/p - doing well. Plan to d/c home. 2) COVID (+) asymptomatic
[2020-03-28] MEDS: Prenatal Vitamin 1 TAB PO SCH (10:56)
[2020-03-28] MEDS: Docusate Calcium (SURFAK) 240 MG CAP PO SCH (10:56)
[2020-03-28] MEDS: Ferrous Sulfate 325 MG TAB PO SCH (10:56)
[2020-03-28 23:38] LABS: SARS-CoV-2 PCR by NAA Indeterminate (NotDetected)
== END 2020-03-28 18:20 | disposition home or self-care (01) | DRG 805 ==
LOC: L&D/OP 21:05 → L&D 03-26 00:27 → 3SE 03-26 17:58 → 3SW 03-27 17:34
PROVIDERS: ADMIT Student in an Organized Health Care Education/Training Program; ATTEND Student in an Organized Health Care Education/Training Program
PROC: 10E0XZZ Delivery of Products of Conception, External Approach (ICD-10-PCS; principal; 2020-03-26)
PROC: 3E033VJ Introduction of Other Hormone into Peripheral Vein, Percutaneous Approach (ICD-10-PCS; 2020-03-26)
PROC: 10907ZC Drainage of Amniotic Fluid, Therapeutic from Products of Conception, Via Natural or Artificial Opening (ICD-10-PCS; 2020-03-26)
DX: O36.63X0 Maternal care for excessive fetal growth, third trimester, not applicable or unspecified (principal); U07.1 COVID-19; Z37.0 Single live birth; O98.52 Other viral diseases complicating childbirth; O71.7 Obstetric hematoma of pelvis; O99.02 Anemia complicating childbirth; D64.9 Anemia, unspecified; O70.0 First degree perineal laceration during delivery; O74.5 Spinal and epidural anesthesia-induced headache during labor and delivery; Z83.3 Family history of diabetes mellitus; Z3A.39 39 weeks gestation of pregnancy
CPT/HCPCS: 51702; 85027; 86780; 86850; 86900; 86901; 87340; 87635; 99285; J2001; J2590; U0003; U0005

== ENCOUNTER 2023-12-08 15:02 | Emergency (ER) | payer MEDICAID, SELFPAY ==
[2023-12-08 15:41] LABS: #Basophils 0.03 10x3/uL (0.0-0.2); %Basophils 0.2 % (0.0-1.0); %Eosinophils 0.2 % (0.0-10.0); %Lymphocytes 6.8 % (21.0-51.0); %Monocytes 5.3 % (0.0-10.0); %Neutrophils 87.2 % (42.0-75.0); Hematocrit 39.3 % (36.0-47.0); Hemoglobin 13.6 g/dL (12.0-16.0); Mean Corpuscular HGB CONC 34.6 g/dL (32.0-36.0); Mean Corpuscular Hemoglobin 30.4 pg (27.0-31.0); Mean Corpuscular Volume 87.7 fL (78.0-98.0); Mean Platelet Volume 9.7 fL (7.4-10.4); Platelet Count 259 10x3/uL (130-400); RBC Distribution Width 13.9 % (11.5-14.5); Red Blood Cell (RBC) Count 4.48 mill/uL (4.20-5.40)
[2023-12-08 16:00] LABS: Bilirubin Negative (Negative); Blood, Urine 3+ (Negative); CAUTI Indications for Culture Dysuria,urgency,freq; Clarity Turbid (Clear); Glucose, Urine (Dipstick) Normal (Negative); Ketone, Urine Negative (Negative); Leukocyte 500 Leu/uL (Negative); Nitrite Negative (Negative); Protein, Urine (Dipstick) Negative (Neg-Trace); Squamous Epithelial 0-3 HPF (0-3); Urobilinogen Normal mg/dL (Less than 2); WBC/HPF Greater than 50 HPF (0-3)
[2023-12-08 16:01] LABS: ALT (SGPT) 9 U/L (8-55); AST (SGOT) 13 U/L (5-34); Albumin 3.9 g/dL (3.5-5.0); Alkaline Phosphatase 101 U/L (40-110); Anion Gap 12 mmol/L (10-20); BUN (Urea Nitrogen) 8 mg/dL (7.0-18.7); Bilirubin, Total 0.5 mg/dL (0.2-1.2); Calc. Creatinine Clearance 0 mL/min (70-130); Calcium 9.1 mg/dL (7.8-10.44); Carbon Dioxide 21 mmol/L (22-29); Chloride 106 mmol/L (98-107); Estimated GFR 119; Globulin 3.6 g/dL (2.4-3.5); Glucose 120 mg/dL (70-105); Potassium 3.6 mmol/L (3.5-5.1); Protein, Total 7.5 g/dL (6.0-8.3); Sodium 135 mmol/L (136-145)
[2023-12-08 16:02] LABS: Pregnancy Test - Urine (BHCG) Negative (Negative); Pregu Control Background? CLEAR/WHITE (CLR/WHITE); Pregu Control Bar Appear? YES (CONTROL BAR); Specific Gravity 1.003 (1.002-1.036)
[2023-12-08 16:06] LABS: Bacteria/HPF 1+ HPF (None Seen); Specific Gravity, Urine 1.003 (1.002-1.036)
[2023-12-08 16:07] LABS: Urine Culture Reflex Yes Yes
== END 2023-12-08 16:51 | disposition home or self-care (01) ==
LOC: ERS 15:02
DX: N75.1 Abscess of Bartholin's gland (principal)
CPT/HCPCS: 36415; 56420; 80053; 81001; 81025; 83605; 85025; 87077; 87086; 87186; 93005